=== PATIENT | female | born 1975 | race Caucasian/White ===

== ENCOUNTER 2017-07-24 23:43 | Emergency (ER) | payer OTHER ==
--- NOTE | 2017-07-25 00:15 | EDM.PDOC ---
ED HPI GENERAL MEDICAL PROBLEM - General Chief Complaint: General Stated Complaint: R foot redness/wound Time Seen by Provider: 07/25/17 00:01 Source of Information: Reports: Patient History Limitations: Reports: No Limitations - History of Present Illness INITIAL COMMENTS - FREE TEXT/NARRATIVE: Cut outside of right foot on edge of door 4 days ago. Cleaned it. Applied butterfly bandages. Worried that it looks like a red streak has started today. No drainage. No increased pain. No fevers or worsening swelling. No other changes. Able to bear weight. No other complaints. - Related Data Allergies Allergy/AdvReac Type Severity Reaction Status Date / Time No Known Allergies Allergy Verified 07/24/17 23:47 Home Meds: Home Meds Fluticasone Propionate [Flonase] 1 spray NS DAILY 07/24/17 [History] Omeprazole Magnesium [Prilosec Otc] 20 mg PO DAILY 07/24/17 [History] Cephalexin [Keflex] 500 mg PO Q8H #9 cap 07/25/17 [Rx] Past Medical History Respiratory History: Reports: Other (See Below) Other Respiratory History: environmental allergies Gastrointestinal History: Reports: GERD Social & Family History - Tobacco Use Smoking Status *Q: Current Every Day Smoker Years of Tobacco use: 20 Packs/Tins Daily: 0.2 Used Tobacco, but Quit: Yes Month/Year Tobacco Last Used: mar Second Hand Smoke Exposure: Yes - Caffeine Use Caffeine Use: Reports: Coffee - Alcohol Use Days Per Week of Alcohol Use: 3 Number of Drinks Per Day: 6 Total Drinks Per Week: 18 - Recreational Drug Use Recreational Drug Use: No ED ROS GENERAL - Review of Systems Review Of Systems: ROS reveals no pertinent complaints other than HPI. ED EXAM, GENERAL - Physical Exam Exam: See Below Exam Limited By: No Limitations General Appearance: Alert, WD/WN, No Apparent Distress Eye Exam: Bilateral Eye: EOMI, PERRL Throat/Mouth: Normal Voice, No Airway Compromise Head: Atraumatic, Normocephalic Neck: Supple Respiratory/Chest: No Respiratory Distress Cardiovascular: Normal Peripheral Pulses Peripheral Pulses: 2+: Dorsalis Pedis (R) Extremities: Normal Range of Motion, No Pedal Edema, Normal Capillary Refill Neurological: Alert, Oriented, Normal Cognition, Normal Gait, No Motor/Sensory Deficits Psychiatric: Normal Affect, Normal Mood Skin Exam: Warm, Dry, Other (healing 1cm laceration lateral right foot. No drainage. Minimal swelling around wound. Mild tenderness with palpation directly over wound. Foot otherwise non-tender. Area of linear bruise starting to manifest on same side of foot just proximal to wound. No obvious red streak noted. ) Course - Vital Signs Last Recorded V/S: Last Vital Signs Temp 37.0 C 07/24/17 23:44 Pulse 91 07/24/17 23:44 Resp 16 07/24/17 23:44 BP 119/79 07/24/17 23:44 Pulse Ox 99 07/24/17 23:44 - Re-Assessments/Exams Free Text/Narrative Re-Assessment/Exam: 07/25/17 00:16 Suspect patient is looking at linear bruise and this is the area of redness that is concerning to her for possible infection. Looking at laceration, it does appear that it could have benefited from suturing and would be a type of wound more prone to infection as it was butterflied together. Very mild swelling around wound site. Will cover patient with course of Keflex. Precautions reviewed. Wound care reviewed. To follow up as needed. Departure - Departure Time of Disposition: 00:14 Disposition: Home, Self-Care 01 Condition: Good Clinical Impression: Foot laceration Qualifiers: Encounter type: initial encounter Laterality: right Qualified Code(s): S91.311A - Laceration without foreign body, right foot, initial encounter - Discharge Information Prescriptions: Cephalexin [Keflex] 500 mg PO Q8H #9 cap Instructions: Wound Infection, [id number], Cephalexin tablets or capsules Referrals: Chani Rosales PA-C [Primary Care Provider] - Forms: ED Department Discharge Additional Instructions: Watch for changes. Follow up as needed if things do not improve within next few days.
== END 2017-07-25 00:20 | disposition home or self-care (01) ==
LOC: LL.ED 23:43
DX: S91.311A Laceration without foreign body, right foot, initial encounter (principal); Z87.891 Personal history of nicotine dependence; Z79.899 Other long term (current) drug therapy; W45.8XXA Other foreign body or object entering through skin, initial encounter
CPT/HCPCS: 99283